=== PATIENT | male | born 1985 | race Native Hawaiian/Other Pacific Islander ===

== ENCOUNTER 2019-12-08 18:05 | Emergency (ER) | payer OTHER ==
[~2019-12-08] VITALS: Ht 190.5 cm; Wt 83.9 kg
[2019-12-08 20:19] VITALS: BP 121/78; TEMP 98.6
== END 2019-12-08 20:19 | disposition home or self-care (01) ==
LOC: ED 18:05
DX: J01.80 Other acute sinusitis (principal)
CPT/HCPCS: 96372; 99283; J0696; J1885